=== PATIENT | female | born 1950 | race Caucasian/White ===

== ENCOUNTER 2023-05-31 17:04 | Inpatient (IN) | payer MEDICAID ==
[~2023-05-31] VITALS: Ht 160 cm; Wt 61.7 kg
[2023-05-31 17:08] VITALS: BP 140/72; PULSE 60; RESP 18; TEMP 97.8; O2SAT 96
[2023-05-31 17:35] VITALS: O2SAT 96
[2023-05-31 18:08] LABS: BASOPHILS % (AUTO) 0.3 % (0.0-2.0); EOSINOPHILS % (AUTO) 0.9 % (0.0-4.0); HEMATOCRIT 21.9 % (36-48); LYMPHOCYTES # (AUTO) 1.1 K/uL (2.5-16.5); LYMPHOCYTES % (AUTO) 30.7 % (20.5-51.1); MEAN CORPUSCULAR HEMOGLOBIN 21 pg (27-31); MEAN CORPUSCULAR HGB CONC 31 g/dL (33-37); MEAN CORPUSCULAR VOLUME 67.1 fL (80-94); MONOCYTES # (AUTO) 0.3 K/uL (0.8-1.0); MONOCYTES % (AUTO) 8.3 % (1.7-9.3); NEUTROPHILS # (AUTO) 2.1 K/uL (1.8-7.7); NEUTROPHILS % (AUTO) 59.8 % (42.2-75.2); PLATELET COUNT (AUTO) 109 K/uL (140-450); RED BLOOD CELL COUNT(AUTO) 3.27 MIL/uL (4.20-5.40); RED CELL DISTRIBUTION WIDTH 17.9 % (11.6-13.7); WHITE BLOOD COUNT (AUTO) 3.5 K/uL (4.8-10.8)
[2023-05-31 18:10] LABS: HEMOGLOBIN 6.7 g/dL (12.0-16.0)
[2023-05-31 18:33] LABS: ALANINE AMINOTRANSFERASE 30 U/L (12-78); ALBUMIN 2.8 g/dL (3.4-5.0); ALKALINE PHOSPHATASE 68 U/L (50-136); ANION GAP 9.6 (8-16); ASPARTATE AMINOTRANSFERASE 36 U/L (15-37); CARBON DIOXIDE 24.2 mmol/L (21-32); CHLORIDE 104 mmol/L (98-107); CREATININE 0.8 mg/dL (0.6-1.3); GLUCOSE 284 mg/dL (74-106); POTASSIUM 3.8 mmol/L (3.5-5.1); SODIUM SERUM 134 mmol/L (136-145); TOTAL BILIRUBIN 0.8 mg/dL (0.0-1.0); UREA NITROGEN, BLOOD 19 mg/dL (7-18)
[2023-05-31] MEDS ORDERED: LEVOFLOXACIN 750 MG/D5W PREMIX 150 ML IV ONE (18:55)
[2023-05-31] MEDS ORDERED: PANTOPRAZOLE 40 MG INJ VIAL IVP ONE (18:55)
[2023-05-31 19:16] LABS: FLU A ANTIGEN negative (NEGATIVE); FLU B ANTIGEN NEGATIVE (NEGATIVE)
[2023-05-31 19:21] LABS: INR 1.56 (0.8-1.2); PARTIAL THROMBOPLASTIN TIME 30.3 secs (22-35.6); PROTHROMBIN TIME 16.1 secs (10.8-13.4)
[2023-05-31 19:35] VITALS: O2SAT 99
[2023-05-31] MEDS ORDERED: POTASSIUM CHLORIDE 10 MEQ TABER PO PRN (20:30)
[2023-05-31] MEDS ORDERED: ACETAMINOPHEN 325 MG TAB PO PRN (20:30)
[2023-05-31] MEDS ORDERED: ONDANSETRON 4 MG/2 ML VIAL IM/IVP PRN (20:30)
[2023-05-31] MEDS ORDERED: HYDROcodone/APAP 7.5/325 MG 1 TAB PO PRN (20:30)
[2023-05-31] MEDS ORDERED: DOCUSATE SODIUM 100 MG GELCAP PO PRN (20:30)
[2023-05-31] MEDS ORDERED: ZOLPIDEM 5 MG TAB PO PRN (20:30)
[2023-05-31] MEDS ORDERED: guaiFENesin DM 200/20 MG-10 ML 10 ML UDC PO PRN (20:30)
[2023-05-31] MEDS ORDERED: PANTOPRAZOLE 40 MG INJ VIAL ONE (21:15)
[2023-06-01] VITALS (10 sets, daily range): BP systolic 123–125; BP diastolic 64–67; PULSE 72–82; RESP 20; TEMP 96.8–97.8; O2SAT 95–99
[2023-06-01 06:49] LABS: BASOPHILS % (AUTO) 0.5 % (0.0-2.0); EOSINOPHILS % (AUTO) 1.5 % (0.0-4.0); HEMATOCRIT 22.1 % (36-48); LYMPHOCYTES # (AUTO) 1.1 K/uL (2.5-16.5); LYMPHOCYTES % (AUTO) 33.4 % (20.5-51.1); MEAN CORPUSCULAR HEMOGLOBIN 20 pg (27-31); MEAN CORPUSCULAR HGB CONC 30 g/dL (33-37); MEAN CORPUSCULAR VOLUME 66.5 fL (80-94); MONOCYTES # (AUTO) 0.3 K/uL (0.8-1.0); MONOCYTES % (AUTO) 9.7 % (1.7-9.3); NEUTROPHILS # (AUTO) 1.8 K/uL (1.8-7.7); NEUTROPHILS % (AUTO) 54.9 % (42.2-75.2); PLATELET COUNT (AUTO) 103 K/uL (140-450); RED BLOOD CELL COUNT(AUTO) 3.32 MIL/uL (4.20-5.40); RED CELL DISTRIBUTION WIDTH 17.5 % (11.6-13.7); WHITE BLOOD COUNT (AUTO) 3.3 K/uL (4.8-10.8)
[2023-06-01 06:56] LABS: HEMOGLOBIN 6.6 g/dL (12.0-16.0)
[2023-06-01 07:00] LABS: ALANINE AMINOTRANSFERASE 32 U/L (12-78); ALBUMIN 2.7 g/dL (3.4-5.0); ALKALINE PHOSPHATASE 62 U/L (50-136); ANION GAP 9.6 (8-16); ASPARTATE AMINOTRANSFERASE 31 U/L (15-37); CALCIUM 7.9 mg/dL (8.5-10.1); CARBON DIOXIDE 25.3 mmol/L (21-32); CHLORIDE 104 mmol/L (98-107); CREATININE 0.7 mg/dL (0.6-1.3); GLUCOSE 216 mg/dL (74-106); POTASSIUM 3.9 mmol/L (3.5-5.1); SODIUM SERUM 135 mmol/L (136-145); TOTAL BILIRUBIN 0.9 mg/dL (0.0-1.0); TOTAL PROTEIN, SERUM 6.7 g/dL (6.4-8.2); UREA NITROGEN, BLOOD 19 mg/dL (7-18)
[2023-06-01] MEDS ORDERED: PANTOPRAZOLE 40 MG TABEC PO SCH (09:00)
[2023-06-01] MEDS ORDERED: AZITHROMYCIN 500 MG in DEXTROSE 5% 250 ML IV SCH (11:00)
[2023-06-01] MEDS ORDERED: AZITHROMYCIN 500 MG INJ VIAL IV ONE (11:46)
[2023-06-01] MEDS ORDERED: LISI2.5T14 PO (12:38)
[2023-06-01] MEDS ORDERED: OMEP20EC10 PO (12:38)
[2023-06-01] MEDS ORDERED: METO25TA PO (12:38)
[2023-06-01] MEDS ORDERED: ALEN70TA85 PO (12:39)
[2023-06-01] MEDS ORDERED: [UNRECOGNIZED DRUG - CODE] PO (12:39)
[2023-06-01] MEDS ORDERED: METO25TA14 PO (12:39)
[2023-06-01] MEDS ORDERED: XAR10 PO (12:39)
[2023-06-01] MEDS ORDERED: ATOR40TA40 PO (12:39)
[2023-06-01] MEDS ORDERED: INSU-1165 SUBQ (12:39)
[2023-06-01] MEDS ORDERED: INSU100S22 SUBQ (12:39)
[2023-06-01] MEDS ORDERED: GLUC-633 (12:39)
[2023-06-01] MEDS ORDERED: CALC-52 PO (12:39)
[2023-06-01] MEDS ORDERED: SENNA 8.6 MG TAB PO SCH (13:00)
[2023-06-01] MEDS: LACTULOSE 20 GM/30 ML UDC PO SCH ×3 (14:11→22:04)
[2023-06-01] MEDS: POLYETHYLENE GLYCOL 17 GM/PKT PO SCH ×2 (14:12→17:32)
[2023-06-01] MEDS: SENNA 8.6 MG TAB PO SCH ×2 (14:12→17:32)
[2023-06-01 15:07] LABS: THYROID STIMULATING HORMONE 0.86 uIU/mL (0.34-3.74)
[2023-06-01] MEDS: BLOOD GLUCOSE MONITORING 1 DEV DEV FS SCH ×2 (17:21→22:00)
[2023-06-01] MEDS: INSULIN LISPRO SLIDING SCALE 100 UNITS/ML VIAL SUBQ PRN ×2 (17:32→22:26)
[2023-06-01] MEDS: FUROSEMIDE 20 MG/2 ML VIAL IVP SCH (22:09)
[2023-06-01] MEDS: INSULIN LANTUS 100 UNITS/ML 10 ML VIAL SUBQ SCH (22:24)
[2023-06-02] VITALS (7 sets, daily range): BP systolic 131–156; BP diastolic 52–69; PULSE 67–93; RESP 18–20; TEMP 97–98.6; O2SAT 95–98
[2023-06-02 05:43] LABS: BASOPHILS % (AUTO) 0.5 % (0.0-2.0); EOSINOPHILS # (AUTO) 0.1 K/uL (0-0.4); EOSINOPHILS % (AUTO) 2.1 % (0.0-4.0); HEMATOCRIT 26.6 % (36-48); HEMOGLOBIN 8.3 g/dL (12.0-16.0); LYMPHOCYTES # (AUTO) 1.2 K/uL (2.5-16.5); LYMPHOCYTES % (AUTO) 35.5 % (20.5-51.1); MEAN CORPUSCULAR HEMOGLOBIN 22 pg (27-31); MEAN CORPUSCULAR HGB CONC 31 g/dL (33-37); MEAN CORPUSCULAR VOLUME 68.6 fL (80-94); MONOCYTES # (AUTO) 0.3 K/uL (0.8-1.0); NEUTROPHILS # (AUTO) 1.8 K/uL (1.8-7.7); NEUTROPHILS % (AUTO) 52.9 % (42.2-75.2); PLATELET COUNT (AUTO) 105 K/uL (140-450); RED BLOOD CELL COUNT(AUTO) 3.88 MIL/uL (4.20-5.40); WHITE BLOOD COUNT (AUTO) 3.4 K/uL (4.8-10.8)
[2023-06-02] MEDS ORDERED: DEXTROSE 50% 50 ML SYR IVP PRN (06:40)
[2023-06-02] MEDS ORDERED: DEXTROSE 50% 50 ML SYR IVP ONE (06:42)
[2023-06-02] MEDS: BLOOD GLUCOSE MONITORING 1 DEV DEV FS SCH ×4 (06:52→20:30)
[2023-06-02 06:56] LABS: ALANINE AMINOTRANSFERASE 40 U/L (12-78); ALBUMIN 3.1 g/dL (3.4-5.0); ALKALINE PHOSPHATASE 62 U/L (50-136); ANION GAP 11.8 (8-16); ASPARTATE AMINOTRANSFERASE 45 U/L (15-37); CALCIUM 8.3 mg/dL (8.5-10.1); CARBON DIOXIDE 28.6 mmol/L (21-32); CHLORIDE 105 mmol/L (98-107); CREATININE 0.6 mg/dL (0.6-1.3); GLUCOSE 51 mg/dL (74-106); POTASSIUM 3.4 mmol/L (3.5-5.1); SODIUM SERUM 142 mmol/L (136-145); TOTAL BILIRUBIN 1.3 mg/dL (0.0-1.0); UREA NITROGEN, BLOOD 10 mg/dL (7-18)
[2023-06-02] MEDS ORDERED: MIDAZOLAM 2 MG/2 ML VIAL ONE (08:24)
[2023-06-02] MEDS ORDERED: fentaNYL citrate 0.05 MG/ML VIAL ONE (08:25)
[2023-06-02] MEDS ORDERED: POTASSIUM CHLORIDE 20% 40 MEQ/15 ML UDC GT SCH (09:00)
[2023-06-02] MEDS ORDERED: POTASSIUM CHLORIDE 10 MEQ TABER PO SCH (09:02)
[2023-06-02] MEDS ORDERED: fentaNYL citrate 0.05 MG/ML VIAL IVP ONE (10:05)
[2023-06-02] MEDS ORDERED: MIDAZOLAM 2 MG/2 ML VIAL IVP ONE (10:05)
[2023-06-02] MEDS: SPIRONOLACTONE 25 MG TAB PO SCH (10:28)
[2023-06-02] MEDS: FUROSEMIDE 20 MG/2 ML VIAL IVP SCH ×2 (10:47→20:24)
[2023-06-02] MEDS: SODIUM FERRIC GLUCONATE 125 MG in NACL 0.9% 100 ML IV SCH ×2 (13:02→18:25)
[2023-06-02] MEDS: FERROUS GLUCONATE 324 MG TAB PO SCH (17:26)
[2023-06-02] MEDS: INSULIN LISPRO SLIDING SCALE 100 UNITS/ML VIAL SUBQ PRN ×2 (17:28→20:29)
[2023-06-02] MEDS: INSULIN LANTUS 100 UNITS/ML 10 ML VIAL SUBQ SCH (20:30)
[2023-06-03] VITALS: BP 133/64; PULSE 74; PULSE 81; RESP 18; TEMP 97.4; O2SAT 95
[2023-06-03 04:00] VITALS: BP 144/72; PULSE 78; PULSE 83; RESP 18; TEMP 98; O2SAT 94
[2023-06-03 06:23] LABS: BASOPHILS % (AUTO) 0.4 % (0.0-2.0); EOSINOPHILS # (AUTO) 0.1 K/uL (0-0.4); EOSINOPHILS % (AUTO) 1.5 % (0.0-4.0); HEMATOCRIT 28.4 % (36-48); HEMOGLOBIN 8.9 g/dL (12.0-16.0); LYMPHOCYTES # (AUTO) 1.1 K/uL (2.5-16.5); LYMPHOCYTES % (AUTO) 25.9 % (20.5-51.1); MEAN CORPUSCULAR HEMOGLOBIN 21 pg (27-31); MEAN CORPUSCULAR HGB CONC 31 g/dL (33-37); MEAN CORPUSCULAR VOLUME 68.2 fL (80-94); MONOCYTES # (AUTO) 0.4 K/uL (0.8-1.0); MONOCYTES % (AUTO) 10.4 % (1.7-9.3); NEUTROPHILS # (AUTO) 2.6 K/uL (1.8-7.7); NEUTROPHILS % (AUTO) 61.8 % (42.2-75.2); PLATELET COUNT (AUTO) 103 K/uL (140-450); RED BLOOD CELL COUNT(AUTO) 4.17 MIL/uL (4.20-5.40); RED CELL DISTRIBUTION WIDTH 19.9 % (11.6-13.7); WHITE BLOOD COUNT (AUTO) 4.2 K/uL (4.8-10.8)
[2023-06-03] MEDS: BLOOD GLUCOSE MONITORING 1 DEV DEV FS SCH ×2 (06:31→12:18)
[2023-06-03] MEDS: INSULIN LISPRO SLIDING SCALE 100 UNITS/ML VIAL SUBQ PRN ×2 (06:31→12:17)
[2023-06-03 06:39] LABS: ALANINE AMINOTRANSFERASE 36 U/L (12-78); ALBUMIN 2.8 g/dL (3.4-5.0); ALKALINE PHOSPHATASE 73 U/L (50-136); ANION GAP 8.8 (8-16); ASPARTATE AMINOTRANSFERASE 36 U/L (15-37); CALCIUM 8.2 mg/dL (8.5-10.1); CARBON DIOXIDE 30.6 mmol/L (21-32); CHLORIDE 98 mmol/L (98-107); CREATININE 0.7 mg/dL (0.6-1.3); GLUCOSE 334 mg/dL (74-106); POTASSIUM 4.4 mmol/L (3.5-5.1); SODIUM SERUM 133 mmol/L (136-145); TOTAL BILIRUBIN 1.2 mg/dL (0.0-1.0); TOTAL PROTEIN, SERUM 7.1 g/dL (6.4-8.2); UREA NITROGEN, BLOOD 12 mg/dL (7-18)
[2023-06-03 08:00] VITALS: BP 136/70; PULSE 90; PULSE 96; RESP 18; RESP 19; TEMP 97.2; O2SAT 95
[2023-06-03] MEDS ORDERED: LACTULOSE 20 GM/30 ML UDC PO SCH (09:00)
[2023-06-03] MEDS: FERROUS GLUCONATE 324 MG TAB PO SCH (09:09)
[2023-06-03] MEDS: SPIRONOLACTONE 25 MG TAB PO SCH (09:10)
[2023-06-03] MEDS: FUROSEMIDE 20 MG/2 ML VIAL IVP SCH (09:10)
[2023-06-03] MEDS: SODIUM FERRIC GLUCONATE 125 MG in NACL 0.9% 100 ML IV SCH ×2 (09:11→13:26)
[2023-06-03] MEDS ORDERED: FERR325E14 PO (10:29)
[2023-06-03] MEDS ORDERED: DOCU-299 PO (10:29)
[2023-06-03 13:31] VITALS: BP 133/64; PULSE 96; RESP 19; TEMP 97.1
== END 2023-06-03 15:15 | disposition home or self-care (01) | DRG 253 ==
LOC: MED 17:04 → MTU 20:27
PROVIDERS: ADMIT Student in an Organized Health Care Education/Training Program; ATTEND Student in an Organized Health Care Education/Training Program
PROC: 0DB98ZX Excision of Duodenum, Via Natural or Artificial Opening Endoscopic, Diagnostic (ICD-10-PCS; principal; 2023-06-02 08:30)
PROC: 0DJD8ZZ Inspection of Lower Intestinal Tract, Via Natural or Artificial Opening Endoscopic (ICD-10-PCS; 2023-06-02 08:30)
DX: K92.2 Gastrointestinal hemorrhage, unspecified (principal); J96.01 Acute respiratory failure with hypoxia; I21.A1 Myocardial infarction type 2; D61.818 Other pancytopenia; E44.1 Mild protein-calorie malnutrition; D68.9 Coagulation defect, unspecified; D69.6 Thrombocytopenia, unspecified; I50.9 Heart failure, unspecified; K80.20 Calculus of gallbladder without cholecystitis without obstruction; Z20.822 Contact with and (suspected) exposure to COVID-19; I11.0 Hypertensive heart disease with heart failure; D50.9 Iron deficiency anemia, unspecified; Z79.82 Long term (current) use of aspirin; Z88.0 Allergy status to penicillin; Z79.899 Other long term (current) drug therapy; Z68.24 Body mass index [BMI] 24.0-24.9, adult
CPT/HCPCS: 36415; 71045; 71046; 76700; 80053; 82728; 82948; 83540; 83880; 84443; 84484; 85025; 85379; 85610; 85730; 86886; 86900; 86901; 86920; 87081; 88305; 93005; 96365; 96375; 99291; 99292; C9113; J0456; J1815; J1940; J1956; J2250; J2916; J3010; J7030; J7060; Q0092